=== PATIENT | female | born 1955 | race Caucasian/White ===

== ENCOUNTER 2022-06-05 12:58 | Emergency (ER) | payer MEDICARE, MEDICAID ==
[~2022-06-05] VITALS: Ht 154.9 cm; Wt 52.0 kg
[~2022-06-05 12:58] MED LIST: ATOR40TA PO; LEVOTHYROXINE PO; LISI20TA28 PO; MELO-100 PO; MIRT-116 PO; QUET-1 PO; UMEC1DIS
[2022-06-05 13:10] VITALS: BP 112/66
[2022-06-05 13:41] LABS: BASOPHILS # (AUTO) 0.1 X10'3 (0-0.2); BASOPHILS % (AUTO) 0.6 % (0-1); EOSINOPHILS # (AUTO) 0.1 X10'3 (0-0.9); EOSINOPHILS % (AUTO) 0.7 % (0-6); HEMATOCRIT 42.3 % (35.0-45.0); HEMOGLOBIN 14.3 g/dl (12.0-16.0); LYMPHOCYTES # (AUTO) 1.9 X10'3 (1.1-4.8); LYMPHOCYTES % (AUTO) 23.8 % (21-51); MEAN CORPUSCULAR HEMOGLOBIN 32.6 PG (27.0-31.0); MEAN CORPUSCULAR HGB CONC 33.9 g/dL (33.0-36.5); MEAN CORPUSCULAR VOLUME 96.2 FL (78-98); MEAN PLATELET VOLUME 8.3 FL (7.4-10.4); MONOCYTES # (AUTO) 0.7 X10'3 (0-0.9); MONOCYTES % (AUTO) 9.1 % (2-12); NEUTROPHILS # (AUTO) 5.4 X10'3 (1.8-7.7); NEUTROPHILS % (AUTO) 65.8 % (42-75); PLATELET COUNT 323 X10'3 (140-440); RED BLOOD COUNT 4.39 X10'6 (4.20-5.60); RED CELL DISTRIBUTION WIDTH 13.1 % (11.5-14.5); WHITE BLOOD COUNT 8.2 X10'3 (4.5-11.0)
[2022-06-05 13:44] LABS: ALANINE AMINOTRANSFERASE 58 U/L (12-78); ALBUMIN 3.4 G/DL (3.4-5.0); ALBUMIN/GLOBULIN RATIO 0.9 (1.1-1.5); ALKALINE PHOSPHATASE 117 IU/L (46-116); ANION GAP 12 (8-16); ASPARTATE AMINO TRANSFERASE 56 U/L (10-37); BILIRUBIN,TOTAL 0.2 MG/DL (0.1-1.0); BLOOD UREA NITROGEN 11 MG/DL (7-18); BUN/CREATININE RATIO 15.5 (6.6-38.0); CALCIUM 9.2 MG/DL (8.5-10.1); CHLORIDE 104 MMOL/L (99-107); CREATININE 0.71 MG/DL (0.40-0.90); GLUCOSE 103 MG/DL (70-104); POTASSIUM 4.1 MMOL/L (3.5-5.1); SODIUM 141 MMOL/L (135-145); TOTAL CARBON DIOXIDE 25.2 MMOL/L (24-32); TOTAL PROTEIN 7.4 G/DL (6.4-8.2); eGFR 82 ML/MIN
--- NOTE | 2022-06-05 22:41 | NUR ---
[age] FAMILY REQUESTS MACHINE BUILDER DO "RE-EVALUATION" TO BE ABLE TO GO TO [facility], BECAUSE THE MACHINE BUILDER NEEDED TO TRIAGE A PATIENT, THE FAMILY REQUESTED TO SPEAK TO ME THE LYRIC WRITER. I EXPLAINED THAT SOON SHIFT CHANGE IS SETTLED I WOULD REVIEW EVERYONE'S CHARTS AND THE APPROPRIATE PATIENTS WOULD GO TO [facility] [age] FAMILY NOW VERY AGGRESSIVE AND INAPPROPRIATE WITH ME REGARDING THE WAIT, EXPLAINED TO PATIENT THE ACUITY OF PATIENT'S IN THE BACK AND THE NECESSARY WAIT TO SAVE LIVES, FAMILY REQUESTS MY LAST NAME, I DECLINED. I SET EXPECATIONS FOR BEHAVIOR AND ENDED THE CONVERSTATION
== END 2022-06-05 22:44 | disposition left against medical advice (07) ==
LOC: ER 12:59
DX: J00 Acute nasopharyngitis [common cold] (principal); Z53.21 Procedure and treatment not carried out due to patient leaving prior to being seen by health care provider
CPT/HCPCS: 36415; 71045; 80053; 83880; 84484; 85025; 93005